=== PATIENT | female | born 1950 | race Caucasian/White ===

== ENCOUNTER 2018-08-07 15:23 | Outpatient (REF) | payer MEDICARE, SELFPAY ==
[2018-08-07 21:23] LABS: Anion Gap 9.6 mmol/L (3-11); BUN 17 mg/dL (7-18); CO2 30.4 mmol/L (21.0-32.0); CREATININE 0.97 mg/dL (0.55-1.02); Calcium 8.9 mg/dL (8.5-10.1); Chloride 100 mmol/L (98-107); Estimated GFR 57.28 (mL/min/1.73m2); Glucose 217 mg/dL (70-100); Potassium 3.4 mmol/L (3.5-5.1); Sodium 140 mmol/L (136-145)
== END 2018-08-07 15:43 ==
LOC: NCHCN 15:23
PROVIDERS: PCP Family Medicine; Visit Provider Family Medicine
DX: I10 Essential (primary) hypertension (principal)
CPT/HCPCS: 80048

== ENCOUNTER 2019-01-14 08:19 | Outpatient (CLI) | payer MEDICARE, SELFPAY ==
[2019-01-14 09:21] LABS: Hemoglobin A1C 6.7 % (4.5-6.2)
[2019-01-14 09:54] LABS: ALT 30 U/L (12-78); AST 19 U/L (15-37); Albumin 3.3 g/dL (3.4-5.0); Alkaline Phosphatase 61 U/L (46-116); Anion Gap 7.4 mmol/L (3-11); BUN 19 mg/dL (7-18); Bilirubin, Total 0.3 mg/dL (0.2-1.0); CO2 32.6 mmol/L (21.0-32.0); CREATININE 1.01 mg/dL (0.55-1.02); Calcium 9.1 mg/dL (8.5-10.1); Chloride 100 mmol/L (98-107); Cholesterol 177 mg/dL (50-200); Estimated GFR 54.51 (mL/min/1.73m2); Glucose 105 mg/dL (70-100); HDL Cholesterol 58 mg/dL (40-60); LDL CHOLESTEROL 98 mg/dL (<100); Potassium 3.6 mmol/L (3.5-5.1); Sodium 140 mmol/L (136-145); Total Protein 7.2 g/dL (6.4-8.2); Triglyceride 140 mg/dL (30-150)
== END 2019-01-14 08:39 ==
PROVIDERS: PCP Family Medicine; Visit Provider Family Medicine
DX: E11.9 Type 2 diabetes mellitus without complications (principal); I10 Essential (primary) hypertension; E66.9 Obesity, unspecified
CPT/HCPCS: 36415; 80053; 80061; 83721; 83036

== ENCOUNTER 2019-02-09 08:16 | Outpatient (CLI) | payer MEDICARE, SELFPAY ==
--- NOTE | 2019-02-09 12:58 | DI.MAMMO_ITS ---
SYMPTOMS/DIAGNOSIS: SCREENING, Z12.31 MAMMOGRAM: Mammograms were interpreted according to the usual protocol including computer analysis with CAD system, tomosynthesis and C view imaging. The breasts are of moderate density with fairly symmetrical distribution of fibroglandular tissue. No dominant mass or clumped microcalcification is identified in either breast. Current examination is compared with previous examinations including March 2017 and there has been no gross interval change in appearance in comparison with the previous studies. CONCLUSION: No specific evidence of malignancy at this time. Routine screening examinations are suggested at yearly intervals in this age group according to the ACS/ACR guidelines. Category 1, breast density category B. MQSA ASSESSMENT OF FINDINGS: Negative. Category 1. Patient will receive a letter notifying them of these results. BI-RADS category B. There are scattered areas of fibroglandular density.
== END 2019-02-09 08:36 ==
PROVIDERS: PCP Family Medicine; Visit Provider Family Medicine
DX: Z12.31 Encounter for screening mammogram for malignant neoplasm of breast (principal)
CPT/HCPCS: 77063; 77067

== ENCOUNTER 2019-03-23 09:41 | Outpatient (CLI) | payer MEDICARE, SELFPAY ==
--- NOTE | 2019-03-23 08:32 | DI.RAD_ITS ---
SYMPTOMS/DIAGNOSIS: LUMP ALONG THE ULNAR ASPECT OF LITTLE FINGER LEFT LITTLE FINGER: Three views. There is focal soft tissue swelling at the ulnar aspect of the left little finger. No associated soft tissue calcifications are seen. The underlying bones are unremarkable. No suspicious lytic or sclerotic lesions are seen. No acute fracture or dislocation is present. IMPRESSION: Focal soft tissue swelling at the ulnar aspect of the left little finger. No associated underlying osseous abnormality is identified. MRI should be considered for further evaluation.
== END 2019-03-23 10:01 ==
PROVIDERS: PCP Family Medicine; Referring Provider Family Medicine; Visit Provider Student in an Organized Health Care Education/Training Program
DX: R22.32 Localized swelling, mass and lump, left upper limb (principal); M79.89 Other specified soft tissue disorders; M79.642 Pain in left hand; M65.312 Trigger thumb, left thumb
CPT/HCPCS: 99202; 99203; 73140

== ENCOUNTER 2019-04-14 11:15 | Day surgery (SDC) | payer MEDICARE, SELFPAY ==
--- NOTE | 2019-04-14 10:07 | W.PM.DSUDISC ---
Discharge Plan Disposition Patient Disposition: HOME Condition: Good Discharge Details Reason For Visit: Cyst on left index finger; left trigger thumb Attending Provider: Juan Jose Pino Primary Care Provider: Samra Soares Home Meds and New Rx's Prescriptions: New acetaminophen 500 mg tablet 500 mg PO Q6H PRN (Reason: pain) Qty: 60 RF: 0 ibuprofen 600 mg tablet 600 mg PO TID PRN (Reason: pain) Qty: 60 RF: 0 Continued lisinopril 5 mg tablet 5 mg PO DAILY RF: 0 Discharge Instructions Additional Instructions: Activity: You may use your fingers for light activity. You should limit any excessive motion or forceful gripping until the sutures have been removed. Dressings: You should keep the initial surgical dressing in place for at least 3 days. You may remove your dressings and get the wound wet after 3 days. You should keep the dressings and the wound clean at all times. You may keep the initial dressing in place until your follow-up but keep the wound covered with light gauze until the sutures are removed. Medications: - You should take Tylenol and Ibuprofen around the clock as prescribed or per condenser setter's recommendations. - You have Hydrocodone prescribed for breakthrough pain control. Take only as needed and limit use as much as possible. This may cause constipation. Follow-up: 7-10 days for wound check and suture removal. Stand Alone Forms: Carmencita Smith (ERINU) Referrals: Juan Jose Pino MD [ [facility] STAFF PHYSICIAN] - Activity:: Elevate Remove Dressings/Wound Care:: 72 hours Discharge Orders Discharge Orders: Discharge Order (Routine); Ordered 04/14/19 Ordered By: Keli Lomax DS: Diagnosis Discharge Diagnosis (1) Mass of finger of left hand: Status: Acute (2) Trigger thumb, left thumb: Status: Acute
[2019-04-14 11:29] VITALS: BP 140/85; PULSE 95; RESP 16; TEMP 36.5; O2SAT 94
[2019-04-14] MEDS: Sodium Bicarbonate 50 MEQ/50 ML VIAL (12:46)
[2019-04-14] MEDS: Lidocaine 1% Multi-Dose 50 ML VIAL (12:46)
[2019-04-14] MEDS: methylPREDNISolone ACETATE 80 MG/ML VIAL (12:48)
--- NOTE | 2019-04-14 12:57 | SOFT_PTH ---
PATIENT: Tatyana King LOC: [facility] U#:[id number] AGE/SX: 68/F ROOM: RE04/14/[address]: Juan Jose Pino MD : 1950 BED: DIS: 04/14/2019 SPEC #: [id number] RECD: 04/14/19 17:36 STATUS: PAUL REDana #: [id number] ANITA: 04/14/19 12:[address]: Juan Jose Pino DEPT: Surgical Specimen RECD BY: Hayley Miller ENTERED: 04/14/19 17:37 SP TYPE: SOFT OTHR DR: Samra Soares Tissues: 1 - SOFT TISSUE MISC (INC. LIPOMA) Procedures: GROSS AND MICRO LEVEL 3 Comments: [id number]
[2019-04-14] MEDS: Bupivacaine 0.5% Pres-Free 30 ML VIAL (13:02)
--- NOTE | 2019-04-14 22:59 | W.PM.OP ---
Date of service: 04/14/19 Time of Service: 15:59 Operative Note DATE OF PROCEDURE: 04/14/19 PRE-OP DIAGNOSIS: Left little finger mass, trigger Finger -left thumb POST-OP DIAGNOSIS: other (Left little finger lipoma, left thumb trigger finger) PROCEDURE: Excisional biopsy of left little finger, left thumb trigger finger injection SURGEON: Juan Jose Pino ANESTHESIA: local ESTIMATED BLOOD LOSS: 0 PATHOLOGY: none sent COMPLICATIONS: None Patient was transported to: same day Patient's condition: stable Indications: I have seen Tatyana in clinic for symptoms of a trigger finger of the left thumb as well as a mass of the left little finger. The catching, clicking, locking, and pain limited function. The diagnosis of trigger finger was evident. The mass of the little finger has gotten larger over time. The only pain it caused was due to the sheer size and limiting motion of the finger but without any other skin changes or concerning findings. Given its persistence in size and its hindrance with motion, I recommended excisional biopsy. I reviewed the risks of the procedure to include, but not limited to, bleeding, infection, pain, stiffness, recurrence, damage to nerves or vessels, and need for repeat procedures. Despite these risks, the patient elected to proceed. As a way to treat the trigger thumb, I offered a trigger finger injection. Findings: The left little finger mass was addressed from a mid axial approach and was clearly a lipoma. It was it will be with taken out and whole without any invasive findings. It was sent to pathology. Procedure Description: Tatyana was greeted in the preoperative holding area where the correct side was identified and marked. The consent was reviewed with the patient and signed. All questions were answered. Tatyana was taken back to the operating room. The patient was placed into the supine position on the operating room table with the left arm on an arm board. All bony prominences were well padded. No prophylactic antibiotics were administered since this was a clean, elective hand surgical case. The left arm was then prepped with Chloraprep and draped in a standard fashion with stockinette and extremity drape. A timeout to confirm correct identity, side and site, procedure, allergies, anesthesia, and medical concerns was performed. The surgical site was marked as a mid axial incision directly over the ulnar border of the little finger. This area was then anesthetized with 1% Lidocaine. The patient tolerated this well and once the anesthetic had setup, the procedure began. The incision was first made to the skin only. The deep tissues were dissected bluntly. Immediately the mass was identified. At this moment appeared to be a lipoma. There was a few layers surrounding it which were entered. Once inside this capsular layer of the lipoma lipoma was easily mobile and it would be removed. Working from within this capsular layer I then incised it for better access to the lipoma. I was able to bring the lipoma out of the skin and work from outside and to free it from any connections. There is no obvious involvement of the neurovascular bundle. The mass was able to be removed and whole. Once resected there was a large space. The tendons were intact. No notable injury to deep structures. The mass was sent to pathology. The wound was then irrigated and the skin was closed with a 4-0 Nylon. This was dressed with gauze and a Conform dressing. The left thumb was identified as the site of the trigger thumb. The area over the A1 batsheva was identified. This area was then prepped with ChloraPrep. An injection into the A1 batsheva and the flexor tendon sheath of the left thumb was then performed using 1 cc of 0.5% bupivacaine and 40 mg of Depo-Medrol. After the injection, Band-Aid was applied. The patient tolerated the procedure well and was returned to the Same Day Surgery area in a stable condition suffering no known complication.
== END 2019-04-14 13:30 | disposition home or self-care (01) ==
LOC: SUR 11:16
PROVIDERS: PCP Family Medicine; Visit Provider Student in an Organized Health Care Education/Training Program
PROC: (CPT 26160; principal; 2019-04-14 13:45)
PROC: (CPT 26055; 2019-04-14 13:45)
DX: M65.312 Trigger thumb, left thumb (principal); D17.39 Benign lipomatous neoplasm of skin and subcutaneous tissue of other sites
CPT/HCPCS: 26115; 26055; 88304; J1040

== ENCOUNTER → 2019-04-24 10:00 | Outpatient (BNVA) | payer MEDICARE, SELFPAY | PROVIDERS: PCP Family Medicine; Referring Provider Family Medicine; Visit Provider Student in an Organized Health Care Education/Training Program | DX: Z47.89 Encounter for other orthopedic aftercare (principal); M65.312 Trigger thumb, left thumb; R22.32 Localized swelling, mass and lump, left upper limb ==

== ENCOUNTER 2019-12-04 07:38 | Outpatient (CLI) | payer MEDICARE, SELFPAY ==
[2019-12-04] MEDS: Normal Saline Flush 10 ML SYR IVP (10:28)
[2019-12-04] MEDS: Gadoterate meglumine 20 ML VIAL 17 ML IVP (10:31)
--- NOTE | 2019-12-04 10:50 | DI.MRI_ITS ---
EXAM: MR CHEST WO/W CLINICAL HISTORY: H/O TRAUMA, MASS RT POSTERIOR LATERAL CHEST, SURGICAL PLANNING, F/U ABNL US, R93.8 9 TECHNIQUE: Multiplanar multisequence MRI of the cervical spine was performed. CONTRAST MATERIAL: IV Contrast: 17 ML of Dotarem contrast administered. COMPARISON: No exams were available for comparison FINDINGS: BONES: Bone marrow signal intensity is within normal limits. MUSCLES: Muscle signal is within normal limits. No intramuscular mass is identified. SOFT TISSUES: Marker on the patient's skin corresponds to a large area of subcutaneous fat along the posterior lateral right chest wall. This may represent a large lipoma. No solid component is identi fied. No enhancing lesions are seen. ENHANCEMENT: No suspicious enhancement identified. IMPRESSION: Large fat signal intensity mass in the posterolateral right chest wall corresponding to the palpable abnormality. The finding is most consistent with a lipoma. DATA REPOSITORY:
== END 2019-12-04 07:58 ==
PROVIDERS: PCP Family Medicine; Visit Provider Physician Assistant
DX: R22.2 Localized swelling, mass and lump, trunk (principal); D17.39 Benign lipomatous neoplasm of skin and subcutaneous tissue of other sites; Z01.818 Encounter for other preprocedural examination; Z13.89 Encounter for screening for other disorder
CPT/HCPCS: 71552; 82565

== ENCOUNTER 2020-01-25 08:28 | Outpatient (REF) | payer MEDICARE, SELFPAY ==
[2020-01-25 21:17] LABS: HCT 41.5 % (36.0-46.0); HGB 13.4 g/dL (12.0-15.5); Mean Corp. HGB Concentration 32.3 g/dL (32.0-36.0); Mean Corpuscular Hemoglobin 29.5 pg (27.0-33.0); Mean Corpuscular Volume 91.2 fL (80-95); Mean Platelet Volume 9.9 fL (8.0-11.0); Platelet Count 394 x1000/uL (130-400); RBC 4.55 m/cumm (4.00-5.20); RBC Distribution Width 14.9 % (11.7-14.6); White Blood Cell Count 8.91 k/cumm (4.4-10.8)
[2020-01-25 21:25] LABS: ALT 37 U/L (14-59); AST 24 U/L (15-37); Albumin 3.4 g/dL (3.4-5.0); Alkaline Phosphatase 65 U/L (46-116); Anion Gap 4.4 mmol/L (3-11); BUN 13 mg/dL (7-18); Bilirubin, Total 0.3 mg/dL (0.2-1.0); CO2 34.6 mmol/L (21.0-32.0); CREATININE 0.92 mg/dL (0.55-1.02); Calcium 9.1 mg/dL (8.5-10.1); Calculated LDL 90 mg/dL (<100); Chloride 103 mmol/L (98-107); Cholesterol 178 mg/dL (<200); Glucose 101 mg/dL (74-106); HDL Cholesterol 59 mg/dL (40-60); Potassium 4.4 mmol/L (3.5-5.1); Sodium 142 mmol/L (136-145); Total Protein 7.4 g/dL (6.4-8.2); Triglyceride 145 mg/dL (<150)
== END 2020-01-25 08:48 ==
LOC: NCHCN 08:28
PROVIDERS: PCP Family Medicine; Visit Provider Family Medicine
DX: I10 Essential (primary) hypertension (principal); Z13.6 Encounter for screening for cardiovascular disorders
CPT/HCPCS: 80053; 80061; 85027

== ENCOUNTER 2020-06-24 07:59 | Outpatient (CLI) | payer MEDICARE, SELFPAY ==
[2020-06-25 14:57] LABS: COVID-19 RT-PCR Result NEGATIVE (Negative)
== END 2020-06-24 08:19 ==
PROVIDERS: PCP Family Medicine
DX: Z11.59 Encounter for screening for other viral diseases (principal); Z01.818 Encounter for other preprocedural examination
CPT/HCPCS: U0003

== ENCOUNTER 2022-04-16 07:50 | Emergency (ER) | payer MEDICARE, SELFPAY ==
[2022-04-16 07:59] VITALS: BP 161/85; PULSE 100; RESP 16; TEMP 36; O2SAT 95
--- NOTE | 2022-04-16 08:14 | W.ED.GENAD ---
Discharge Plan Disposition Patient Disposition: HOME Condition: Good Discharge Details Clinical Impression: Contusion of face, Facial hematoma, Abrasion of face Primary Care Provider: Samra Soares ED Provider: Ludivina Zacarias Home Meds and New Rx's Prescriptions: Continued lisinopril 5 mg tablet 5 mg PO DAILY Rx Instructions: PT. IS UNSURE OF DOSAGE acetaminophen 500 mg tablet 500 mg PO Q6H PRN (Reason: pain) Qty: 60 0RF ibuprofen 600 mg tablet 600 mg PO TID PRN (Reason: pain) Qty: 60 0RF Discharge Instructions Instructions: Head Injury (ED), Contusion in Adults (ED) Additional Instructions: Your imaging is reassuring here today. No evidence of significant bleeding or fracture. Likely your bruising and swelling will continue to spread. Please encourage hydration. Tylenol and ibuprofen as needed for discomfort. Please continue to ice the area, this should help with some of your swelling. Please follow-up with your primary care in the next 1 to 2 weeks for reevaluation. If he develops signs or symptoms of infection such as redness, warmth, drainage, increased pain, fever/chills or evidence of worsening head injury like confusion, weakness, sensation change, vomiting or any other new/worsening symptoms please seek care urgently once again. Referrals: Samra Soares [Primary Care Provider] - Discharge Data Discharge Date/Time-TO BE ENTERED AT DEPARTURE: 04/16/22 10:07 Medical Decision Making Patient is a pleasant 71-year-old female, accompanied by significant other, with chief complaint of facial injury. She reports a prior to arrival she caught her flip-flop on a small step and propelled her self forward hitting her face on a shelf with the chest wall. Has a area of swelling over the right orbit as well as some abrasions at the bridge of her nose and tenderness there. She denies any loss of consciousness, headache, visual changes, nausea/vomiting. She denies any eye pain. She feels that her teeth are aligning well, denies any malocclusion or pain with biting. Denies any pain in her neck. No shortness of breath or chest pain. Patient reports she is up-to-date on tetanus. On exam, patient appears nontoxic. She has a 4 cm area of swelling superior to the right eyebrow. She does have upper orbital tenderness. Extraocular movements are intact. She also has a small very superficial abrasion at the bridge of her nose and some ecchymosis here. No intranasal trauma is noted. Good movement of the TMJ, no facial pain elsewhere. C-spine is nontender, sensation is intact. Patient appears to have hematoma and abrasions associate with the fall. Patient patient's age, I am concerned for potential intracranial hemorrhage although her intact neurologic exam is reassuring. She is currently icing the area. We will give Tylenol to help with discomfort. We will forward with CT scans to evaluate for potential intracranial hemorrhage as well as possible fractures associated with the fall primarily with the right upper orbit as well as nasal bone. Discussed this plan with patient and family. CT scan reviewed by radiologist, reported to be negative head and face. Discussed these findings with the patient and her significant other. Advised contusion. We discussed fall prevention moving forward. Advised on pain management. Advised on expected course and strict return precautions. Tetanus UTD. Advised f/u with PCP. Advised she continue with ice to help with swelling/pain. All of her questions and concerns were addressed, she was in agreement with this plan. HPI General Date/Time Provider Initiated Documentation: 04/16/22 08:13. Limitations to Documentation: no limitations. Information obtained by: patient, family () and RN notes reviewed. History of Present Illness 71 year old F presents to the emergency department with the chief complaint of facial pain, trauma, described as mild, Quality is described as aching, and is localized to the face. Patient reports no radiation. Patient started experiencing this minute(s) and it has been constant. No relieving factors improve symptom(s), No exacerbating factors reported . Patient notes headaches; denies chest pain, diaphoresis, fever/chills, malaise, nausea/vomiting, seizure, shortness of breath, syncope and weakness. Patient did receive the following treatments prior to arrival, none Related Data Home Medications Medication Instructions Recorded Confirmed lisinopril 5 mg tablet 5 mg PO DAILY 03/23/19 04/16/22 acetaminophen 500 mg tablet 500 mg PO Q6H PRN pain #60 tabs 04/14/19 04/16/22 ibuprofen 600 mg tablet 600 mg PO TID PRN pain #60 tabs 04/14/19 04/16/22 Previous Rx's Medication Instructions Recorded acetaminophen 500 mg tablet 500 mg PO Q6H PRN pain #60 tabs 04/14/19 ibuprofen 600 mg tablet 600 mg PO TID PRN pain #60 tabs 04/14/19 Allergies Allergy/AdvReac Type Severity Reaction Status Date / Time Sulfa (Sulfonamide Allergy Intermediate Verified 04/16/22 08:05 Antibiotics) General Stated Complaint: Trauma PAUL: 3 Review of Systems Constitutional Constitutional: Reports as per HPI, Denies fever(s), Denies frequent falls, Reports headache(s) and Denies weakness Eyes Eyes: Reports as per HPI and Denies change in vision ENT Ears, Nose, Mouth, and Throat: Reports headache(s) and Denies neck pain Cardiovascular Cardiovascular: Reports as per HPI, Denies chest pain, Denies lightheadedness and Denies dyspnea Respiratory Respiratory: Reports as per HPI, Denies cough and Denies dyspnea Gastrointestinal Gastrointestinal: Reports as per HPI, Denies nausea and Denies vomiting Musculoskeletal Musculoskeletal: Reports as per HPI, Denies back pain, Denies neck pain and Denies numbness Integumentary/Breasts Skin/Breast: Reports as per HPI Neurologic Neurologic: Reports as per HPI, Denies abnormal movements, Denies abnormal speech, Denies confusion, Denies frequent falls, Reports headache(s), Denies localized weakness, Denies numbness, Denies sensory deficit and Denies weakness Psychiatric Psychiatric: Denies confusion PFSH All Active Problems (Updated 04/24/19 @ 14:45 by Keli Lomax) Contusion of face (Acute) Facial hematoma (Acute) Abrasion of face (Acute) Trigger thumb, left thumb (Acute) Injection: 04/14/19 Mass of finger of left hand (Acute) Excision of lipoma from left little finger DOS: 04/14/2019 Medical History (Updated 04/16/22 @ 10:01 by MARIE Pemberton) Bone spur HX OF BONE SPUR SURGERY Hypertension Social History Smoking/Tobacco Use Status: Former Tobacco Use Quit Date: 04/09/08 Smoking risk assessment performed?: Yes Alcohol Intake: current Alcohol Intake frequency: holidays/special occasions only Alcohol type: wine and hard liquor Drug use: Never Substance use type: does not use Do you feel safe at home: Yes Do you feel safe in your relationship?: Yes Additional Social history: partner at bedside. Exam Const General: cooperative, healthy appearing, uncomfortable, no acute distress, well developed and well groomed Nutritional Appearance: average body habitus and well nourished Orientation: alert, awake and oriented x3 [facility] Head: no palpable skull fracture, normocephalic, no acral cyanosis, no Pimentel's sign, no occipital foramen tenderness and no palpable skull fracture Head images: 1. Area of maximal tenderness, swelling and ecchymosis. Smaller area at the bridge of her nose. No palpable defect. Ears: hearing grossly normal bilaterally, external ears normal and TM's normal bilaterally General nose exam: external nose normal, nares normal and nasal mucous membranes and turbinates normal Mouth: oral mucosae normal and moist mucous membranes Throat: posterior oropharynx normal Eyes General: appearance normal, both eyes and all related structures Alignment and Position: alignment normal Periorbital: periorbital findings normal Eyelids: eyelids normal Sclera: sclerae normal Cornea: corneas normal Pupils: PERRL EOM: EOM intact bilaterally Neck Neck: normal visual inspection, full ROM and no lymphadenopathy Resp Effort & Inspection: normal respiratory effort, able to speak in complete sentences and no respiratory distress Auscultation: clear to auscultation bilaterally, no rales, no rhonchi and no wheezes Cardio Rate: regular rate Rhythm: regular rhythm Heart Sounds: S1 normal and S2 normal GI Percussion: normal to percussion Auscultation: normal bowel sounds Back/Spine/Pelvis Cervical Spine: normal cervical lordosis and cervical ROM normal Skin General skin exam: ecchymosis Neuro General: patient alert, patient awake and patient oriented x3 Cranial Nerves: CN's II-XI intact bilaterally Cognition: normal cognition Speech: speech normal Gait: normal gait Motor: muscle tone normal throughout, strength 5/5 throughout, no pronator drift, no movement abnormalities noted and no fasciculations Sensory Exam: no sensory deficits noted Coordination: [id number] test normal and [id number] test normal Extrem General: normal to inspection, capillary refill normal, no pedal edema and no calf tenderness Psych Appearance: grossly normal and well kempt Mental Status: mental status grossly normal Speech and Movement: speech and movement normal Course Vital Signs Vital signs: Vital Signs Temperature 36.0 C L 04/16/22 07:59 Pulse 100 H 04/16/22 07:59 Respiratory Rate 16 04/16/22 07:59 Blood Pressure 161/85 H 04/16/22 07:59 Pulse Oximetry 95 04/16/22 07:59 Temperature 36.0 C L 04/16/22 07:59 Temperature Source Skin 04/16/22 07:59 Pulse 100 H 04/16/22 07:59 Respiratory Rate 16 04/16/22 07:59 Blood Pressure 161/85 H 04/16/22 07:59 Blood Pressure Position Sitting 04/16/22 07:59 Pulse Oximetry 95 04/16/22 07:59 Oxygen Delivery Method Room Air 04/16/22 07:59 Oxygen Flow Rate 0 04/16/22 07:59 Pain Level 0 04/16/22 07:59
[2022-04-16] MEDS: Acetaminophen 325 MG TAB 650 MG PO (08:31)
--- NOTE | 2022-04-16 08:46 | DI.CT_ITS ---
Exam(s) CT HEAD FACIAL WO EXAM: CT HEAD FACIAL WO CLINICAL HISTORY: fall, struck face, no right orbit pain. TECHNIQUE: Imaging Protocol: Axial computed tomography images with coronal and sagittal reformatted images were created and reviewed COMPARISON: No exams were available for comparison FINDINGS: BRAIN: There is a right supraorbital scalp hematoma. No skull fracture nor fluid in the visualized paranasa l sinuses and mastoid air cells. There is no evidence of intracranial hemorrhage, mass effect, or shift of midline structures. There are no extra-axial fluid collections. The ventricles are not enlarged or shifted and there is no blo od within the ventricular system nor within the basal cisterns. Calcifications noted within the left vertebral artery at the skull base. MAXILLOFACIAL CT SCAN: There is no evidence of facial fractures nor fluid in the visualized paranasal sinuses. Small retent ion cyst noted in the floor of the right maxillary sinus. No fluid. There is no evidence of orbital blowout fracture. No evidence of nasal bone fracture. Zygomatic arches are intact. Degenerative disc disease at C4-5 level incidentally noted. IMPRESSION: Right foreign hematoma. No acute intracranial findings on this noninfused CT scan of the brain.No sk ull fractures. No evidence of facial bone fractures nor orbital fractures. Report called by myself to the ER. RADIATION DOSE DELIVERED: 1,529.2mGy.cm Total DLP DATA REPOSITORY: All CT scans at this facility are submitted to the National Radiology Data Registry (NRDR) Dose Index Registry (DIR) with the [employer] (ACR). RADIATION OPTIMIZATION: All CT scans at this facility use at least one of these dose optimization te chniques: automated exposure control; mA and/or kV adjustment per patient size (includes targeted exa ms where dose is matched to clinical indication); or iterative reconstruction.
[2022-04-16 09:01] VITALS: BP 138/65; PULSE 79; RESP 16; O2SAT 97
[2022-04-16 10:05] VITALS: BP 138/65; PULSE 79; RESP 16; O2SAT 97
== END 2022-04-16 10:07 | disposition home or self-care (01) ==
PROVIDERS: Emergency Provider Physician Assistant; PCP Family Medicine
DX: S00.83XA Contusion of other part of head, initial encounter (principal); S00.31XA Abrasion of nose, initial encounter; I10 Essential (primary) hypertension; Z87.891 Personal history of nicotine dependence; W01.198A Fall on same level from slipping, tripping and stumbling with subsequent striking against other object, initial encounter
CPT/HCPCS: 99284; 70450; 70486; 99282

== ENCOUNTER 2022-10-23 15:59 | Outpatient (REF) | payer MEDICARE, SELFPAY ==
[2022-10-23 14:52] LABS: ALT 25 U/L (14-59); AST 19 U/L (15-37); Albumin 3.5 g/dL (3.4-5.0); Alkaline Phosphatase 65 U/L (46-116); Anion Gap 2.5 mmol/L (3-11); BUN 19 mg/dL (7-18); Bilirubin, Total 0.3 mg/dL (0.2-1.0); CO2 36.5 mmol/L (21.0-32.0); CREATININE 0.8 mg/dL (0.55-1.02); Calcium 9.7 mg/dL (8.5-10.1); Calculated LDL 91 mg/dL (<100); Chloride 103 mmol/L (98-107); Cholesterol 172 mg/dL (<200); Estimated GFR 78.72 (mL/min/1.73m2); Glucose 110 mg/dL (74-106); HDL Cholesterol 62 mg/dL (40-60); Potassium 4.5 mmol/L (3.5-5.1); Sodium 142 mmol/L (136-145); Total Protein 7.3 g/dL (6.4-8.2); Triglyceride 97 mg/dL (<150)
== END 2022-10-23 16:00 | disposition home or self-care (01) ==
LOC: NCHCN 15:59
PROVIDERS: PCP Family Medicine; Visit Provider Family Medicine
DX: E55.9 Vitamin D deficiency, unspecified (principal); I10 Essential (primary) hypertension; Z13.220 Encounter for screening for lipoid disorders; Z00.00 Encounter for general adult medical examination without abnormal findings
CPT/HCPCS: 80053; 80061; 82306

== ENCOUNTER 2022-11-15 01:30 | Outpatient (CLI) | payer MEDICARE, SELFPAY ==
--- NOTE | 2022-11-15 08:35 | DI.MAMMO_ITS ---
Exam(s) MAMMO SCREENING EXAM: MAMMO SCREENING CLINICAL HISTORY: SCREENING, Z12.31 TECHNIQUE: Mammograms were interpreted according to the usual protocol including computer analysis w [employer] CAD system, tomosynthesis and C-view imaging. COMPARISON: 2013 through 2018 FINDINGS: The breasts are composed of scattered fibroglandular densities, Breast Density category B. No suspicious masses or suspicious microcalcifications are seen. No skin thickening or abnormal axillary lymph nodes are seen. There has been no significant change from prior exams. IMPRESSION: BI-RADS Category 1, Negative mammogram Yearly screening mammography is recommended. Breast Density - Category B, scattered fibroglandular densities. A negative radiographic report should not delay biopsy if a dominant or clinically suspicious mass is present. Up to ten percent of cancers are not identified on mammography. A negative report may reinforce clinical impression. Adenosis and dense breasts may obscure an underlying neoplasm. False positive reports average 6 to 10%. Patient will receive a letter notifying them of these results.
== END 2022-11-15 01:50 ==
PROVIDERS: PCP Family Medicine; Visit Provider Family Medicine
DX: Z12.31 Encounter for screening mammogram for malignant neoplasm of breast (principal); R92.8 Other abnormal and inconclusive findings on diagnostic imaging of breast
CPT/HCPCS: 77063; 77067

== ENCOUNTER 2023-05-10 17:49 | Outpatient (REF) | payer MEDICARE, SELFPAY ==
[2023-05-10 16:22] LABS: Hemoglobin A1C 6.7 % (<5.7)
== END 2023-05-10 17:50 | disposition home or self-care (01) ==
LOC: NCHCN 17:49
PROVIDERS: PCP Family Medicine; Visit Provider Family Medicine
DX: E11.9 Type 2 diabetes mellitus without complications (principal)
CPT/HCPCS: 83036

== ENCOUNTER 2024-02-27 17:19 | Emergency (ER) | payer MEDICARE, SELFPAY ==
[2024-02-27 17:23] VITALS: BP 156/80; PULSE 80; RESP 16; TEMP 36.8; O2SAT 98
--- NOTE | 2024-02-27 17:30 | DI.RAD_ITS ---
Exam(s) XR HUMERUS LT EXAM: XR HUMERUS LT CLINICAL HISTORY: fall, mid humerus pain. TECHNIQUE: 2D digital imaging was performed. Two views. COMPARISON: No exams were available for comparison FINDINGS: BONES: No acute fracture is present. No bony destructive lesion is seen. Visualized portion of elbow and shoulder joints are unremarkable. SOFT TISSUE: Normal. IMPRESSION: No acute abnormality. DATA REPOSITORY: RADIATION DOSE DELIVERED:
--- NOTE | 2024-02-27 17:35 | DI.CT_ITS ---
Exam(s) CT HEAD FACIAL WO EXAM: CT HEAD FACIAL WO CLINICAL HISTORY: fall,head injury, brow laceration L. TECHNIQUE: Imaging Protocol: Axial computed tomography images with coronal and sagittal reformatted images were created and reviewed COMPARISON: CT CT HEAD FACIAL WO from 04/16/2022 CR XR HUMERUS LT from 02/27/2024 FINDINGS: CT Head: Ventricles and Extra axial spaces: Normal in size and morphology for the patient's age. Hemorrhage: None. Cerebral parenchyma: Mild atrophy. No evidence of hemorrhage or infarct. No significant white matte r changes. Midline shift: None. Brainstem/Cerebellum: Normal. Calvarium: Normal. Visualized Paranasal sinuses/Mastoids: Fluid in hemorrhage in left maxillary sinus. Soft Tissues: Left periorbital swelling and periorbital emphysema. CT Face: Facial Bones: There is a fracture of the inferior wall of the left orbit with depression and some he rniation of fat. There is no herniation of the inferior rectus muscle. The amount of depression is approximately 5 millimeters. No additional fractures are identified. Sinuses and Mastoids: Fluid in hemorrhage in the left maxillary sinus. Globes, extraocular muscles, optic nerves and retrobulbar fat: The globes and extraocular muscles ar e intact. There is air within the left orbit. Upper aerodigestive tract: Normal. Mandible and bilateral temporomandibular joints: Normal. Soft tissues: Marked left periorbital emphysema. IMPRESSION: 1. No acute intracranial process. 2. Fracture of the inferior wall of the left orbit with depression of approximately 5 millimeters. S ome herniation of intraorbital fat but no herniation of the inferior rectus muscle. 3. Findings called to Dr. Gonzalez of the emergency department. RADIATION DOSE DELIVERED: Total DLP DATA REPOSITORY: All CT scans at this facility are submitted to the National Radiology Data Registry (NRDR) Dose Index Registry (DIR) with the [employer] (ACR). RADIATION OPTIMIZATION: All CT scans at this facility use at least one of these dose optimization te chniques: automated exposure control; mA and/or kV adjustment per patient size (includes targeted exa ms where dose is matched to clinical indication); or iterative reconstruction.
--- NOTE | 2024-02-27 17:41 | ED.GENADUL_ITS ---
Discharge Plan Disposition Patient Disposition: Home Condition: Improving Discharge Details Clinical Impression: Laceration of brow without complication, Fracture of inferior orbital wall Primary Care Provider: Samra Soares ED Provider: Sergio Gonzalez Home Meds and New Rx's Prescriptions: New amoxicillin-pot clavulanate 875-125 mg tablet 1 tab PO BID 7 Days Qty: 14 0RF No Action acetaminophen 500 mg tablet 500 mg PO Q6H PRN (Reason: pain) Qty: 60 0RF ibuprofen 600 mg tablet 600 mg PO TID PRN (Reason: pain) Qty: 60 0RF Discharge Instructions Instructions: Facial Fracture (DC) Additional Instructions: Please follow-up with oral maxillofacial surgery/underwear cutter at [facility] referral has been placed for you, continue to take antibiotics as prescribed, please return to the emergency department for any worsening symptoms HPI General Date/Time Provider Initiated Documentation: 02/27/24 17:31 . HPI Narrative: 73-year-old female presents after mechanical fall from standing tripped fell forward hitting her left brow, skin flap to left brow no loss of conscious, no blood thinner use, also pain to mid left arm, no other injuries. Related Data Home Medications Medication Instructions Recorded Confirmed acetaminophen 500 mg tablet 500 mg PO Q6H PRN pain #60 tabs 04/14/19 02/27/24 ibuprofen 600 mg tablet 600 mg PO TID PRN pain #60 tabs 04/14/19 02/27/24 amoxicillin 875 mg-potassium 1 tab PO BID 7 days #14 tabs 02/27/24 clavulanate 125 mg tablet Previous Rx's Medication Instructions Recorded acetaminophen 500 mg tablet 500 mg PO Q6H PRN pain #60 tabs 04/14/19 ibuprofen 600 mg tablet 600 mg PO TID PRN pain #60 tabs 04/14/19 amoxicillin 875 mg-potassium 1 tab PO BID 7 days #14 tabs 02/27/24 clavulanate 125 mg tablet Allergies Allergy/AdvReac Type Severity Reaction Status Date / Time Sulfa (Sulfonamide Allergy Intermediate Anaphylaxis Verified 02/27/24 17:25 Antibiotics) General Stated Complaint: Fall/Non TraumaCriteria PAUL: 3 Review of Systems Narrative: Review of Systems Constitutional: negative Eyes: Brow laceration ENT: negative Cardiovascular: negative Respiratory: negative Gastrointestinal: negative : negative Musculoskeletal: Left arm pain Skin: negative Neurologic: negative Psych: negative Exam Narrative Exam Narrative: Physical Examination General: alert, awake, cooperative, resting comfortably, no acute distress HEENT: normocephalic, superficial skin flap approximately 2.5 cm left brow, hemostatic no foreign body, extraocular motion intact no proptosis normal pupils equal round reactive to light Neck: supple, trachea midline; full ROM Chest: normal to inspection Respiratory: normal respiratory effort, speaking in full sentences Back: No midline spinal tenderness step-off crepitus or deformity Skin: See HEENT Neuro: AAOx3, normal speech, moving all extremities Extremities: Holding left upper extremity adducted to side, flexion at elbow, median radial and ulnar sensory nerve distribution intact radial pulse intact soft compartments, range of motion at shoulder limited by pain tenderness to midshaft humerus, no elbow discomfort Psych: Appropriate mood and affect Course Vital Signs Vital signs: Vital Signs Temperature 36.8 C 02/27/24 17:23 Pulse 80 02/27/24 17:23 Respiratory Rate 16 02/27/24 17:23 Blood Pressure 156/80 H 02/27/24 17:23 Pulse Oximetry 98 02/27/24 17:23 Temperature 36.8 C 02/27/24 17:23 Pulse 80 02/27/24 17:23 Respiratory Rate 16 02/27/24 17:23 Blood Pressure 156/80 H 02/27/24 17:23 Pulse Oximetry 98 02/27/24 17:23 Oxygen Delivery Method Room Air 02/27/24 17:23 Oxygen Flow Rate 0 02/27/24 17:23 Pain Level 10 02/27/24 17:23 Procedures Laceration Laceration 1: Site: face Side (If applicable): left Size (cm): 3 Description: flap Depth: simple, single layer Local Anesthetic: other anesthetic (LET) Pre-repair: wound explored, irrigated extensively and deep structures intact Skin layer closed with: vicryl Size (cm): 5-0 Number of sutures: 6 Technique: simple, interrupted Medical Decision Making 73-year-old female presents for mechanical fall from standing, fell forward hitting her left brow sustaining superficial 2.5 cm skin flap to left brow, pain to midshaft left humerus, hemodynamically stable alert oriented airway intact breathing circulation intact, neurovascular exam of limb intact, wound hemostatic no foreign body, no loss conscious neurologically intact without deficit, likely simple contusion and skin flap laceration, lower suspicion for intracranial hemorrhage skull fracture or facial fracture no evidence of globe disruption however given age and mechanism and exam will obtain CT head CT facial bone, fluorescein tetracaine stain, x-ray of left humerus concerning for proximal humeral fracture versus midshaft humerus fracture lower suspicion for supracondylar fracture lower suspicion for dislocation, analgesia L ET gel applied to facial lack, disposition pending reassessment and results 22: 19 resting comfortably no acute distress. Evidence of inferior wall left orbit fracture with depression and some intraorbital fat herniation, no entrapment of the extraocular muscles, CT head unremarkable, patient started on Augmentin empirically, will be given ENT/OMFS follow-up at [facility]. Home care instructions and return precautions given Quality:SDOH Health Related Social Needs: No Data to Display PFSH All Active Problems (Updated 04/24/19 @ 14:45 by Keli Ponce) Fracture of inferior orbital wall (Acute) Laceration of brow without complication (Acute) Trigger thumb, left thumb (Acute) Injection: 04/14/19 Mass of finger of left hand (Acute) Excision of lipoma from left little finger DOS: 04/14/2019 Medical History (Updated 02/27/24 @ 22:20 by Sergio Gonzalez MD) Bone spur HX OF BONE SPUR SURGERY Hypertension Social History Smoking/Tobacco Use Status: Former Tobacco Use Quit Date: 04/09/08 Smoking risk assessment performed?: Yes Alcohol Intake: current Alcohol Intake frequency: holidays/special occasions only Alcohol type: wine and hard liquor Drug use: Never Substance use type: does not use Do you feel safe at home: Yes Do you feel safe in your relationship?: Yes Additional Social history: partner at bedside.
[2024-02-27] MEDS: ACETAMINOPHEN 1,000 MG/100 ML BTL 400 MG IVPB (17:43)
[2024-02-27] MEDS: Lidocaine/Epinephri/Tetracaine Topical Gel 3 ML (17:44)
[2024-02-27] MEDS: fentaNYL 100 MCG/2 ML VIAL 50 MCG IVP (17:58)
--- NOTE | 2024-02-27 18:30 | DI.CT_ITS ---
Exam(s) CT UPPER EXTREMITY LT WO EXAM: CT UPPER EXTREMITY LT WO CLINICAL HISTORY: mid shaft humerus pain, negative xr TECHNIQUE: Imaging Protocol: Axial computed tomography images with coronal and sagittal reformatted images were created and reviewed. CONTRAST MATERIAL: Intravenous: Omnipaque 350 Contrast volume:structured data in ml Contrast route:I V - COMPARISON: CR XR HUMERUS LT from 02/27/2024 FINDINGS: Bones: There is no evidence of fracture or dislocation. Bony alignment is satisfactory. No cellulitic or osteomyelitic changes are identified. Mild degenerative changes at the acromioclavicular joint. Degenerative cystic changes in the humeral head. The elbow is grossly unremarkable. Soft Tissues: Normal. No hematoma. IMPRESSION: No acute abnormality. RADIATION DOSE DELIVERED: 290.29mGy.cm Total DLP DATA REPOSITORY: All CT scans at this facility are submitted to the National Radiology Data Registry (NRDR) Dose Index Registry (DIR) with the [employer] (ACR). RADIATION OPTIMIZATION: All CT scans at this facility use at least one of these dose optimization te chniques: automated exposure control; mA and/or kV adjustment per patient size (includes targeted exa ms where dose is matched to clinical indication); or iterative reconstruction.
[2024-02-27] MEDS: Amoxicillin 875/Clav. 125 TAB PO (20:54)
[2024-02-27 21:47] VITALS: BP 160/75; PULSE 83; RESP 16; TEMP 36.8; O2SAT 94
--- NOTE | 2024-02-27 22:15 | DI.VRAD_ITS ---
PROCEDURE INFORMATION: Exam: CT Left Upper Extremity Without Contrast, Upper Arm Exam date and time: 02/27/2024 7:41 PM Age: 73 years old Clinical indication: Injury or trauma; Fall; Blunt trauma (contusions or hematomas); Arm, upper; Left; Injury date: 02/27/24; Injury details: Mid shaft humerus pain, negative XR TECHNIQUE: Imaging protocol: Computed tomography of the left upper extremity without contrast. Exam focused on the upper arm. COMPARISON: CR XR HUMERUS LT 02/27/2024 6:08 PM FINDINGS: Bones/joints: Normal. No acute fracture or dislocation. Soft tissues: Normal. No significant hematoma. IMPRESSION: No evidence for fracture. Dictated and Authenticated by: Keren Gamble MD. Ordering:DURGA Hill MD
--- NOTE | 2024-02-27 22:21 | NUR.NOTE ---
Addendum entered by Anjali Zendejas 03/04/24 11:01: Patient called asking about when she should be concerned about her appt with [facility]. Referral given to Care Management, patient name and phone number given to them to call her back with details. Original Note: Referral to Care Management to refer patient to [facility] either ENT or OMFS jordi. Dx of L inferior orbital fx.Nursing Note:
== END 2024-02-27 22:26 | disposition home or self-care (01) ==
PROVIDERS: Emergency Provider Emergency Medicine; PCP Family Medicine
DX: S01.112A Laceration without foreign body of left eyelid and periocular area, initial encounter (principal); S02.32XA Fracture of orbital floor, left side, initial encounter for closed fracture; I10 Essential (primary) hypertension; Z87.891 Personal history of nicotine dependence; W01.10XA Fall on same level from slipping, tripping and stumbling with subsequent striking against unspecified object, initial encounter
CPT/HCPCS: 12013; 96365; 96375; 99285; 70450; 70486; 73060; 73200; 99284; J0131; J3010

== ENCOUNTER 2025-03-05 23:16 | Outpatient (REF) | payer MEDICARE, SELFPAY ==
[2025-03-05 23:09] LABS: ALT 31 U/L (14-59); AST 18 U/L (15-37); Albumin 3.7 g/dL (3.4-5.0); Alkaline Phosphatase 81 U/L (46-116); Anion Gap 6.9 mmol/L (3-11); BUN 16 mg/dL (7-18); Bilirubin, Total 0.4 mg/dL (0.2-1.0); CO2 32.1 mmol/L (21.0-32.0); CREATININE 0.8 mg/dL (0.55-1.02); Calcium 9.2 mg/dL (8.5-10.1); Calculated LDL 94 mg/dL (<100); Chloride 100 mmol/L (98-107); Cholesterol 176 mg/dL (<200); Estimated GFR 77.27 (mL/min/1.73m2); Glucose 94 mg/dL (74-106); HDL Cholesterol 55 mg/dL (>or=50); Potassium 3.6 mmol/L (3.5-5.1); Sodium 139 mmol/L (136-145); Total Protein 7.4 g/dL (6.4-8.2); Triglyceride 139 mg/dL (<150)
== END 2025-03-05 23:17 | disposition home or self-care (01) ==
LOC: NCHCN 23:16
PROVIDERS: PCP Family Medicine; Visit Provider Family Medicine
DX: Z00.00 Encounter for general adult medical examination without abnormal findings (principal)
CPT/HCPCS: 80053; 80061

== ENCOUNTER 2025-03-18 01:13 | Outpatient (CLI) | payer MEDICARE, SELFPAY ==
--- NOTE | 2025-03-18 12:53 | DI.MAMMO_ITS ---
Exam(s) MAMMO SCREENING EXAM: MAMMO SCREENING CLINICAL HISTORY: Screening Z12.31. TECHNIQUE: Bilateral full field digital CC and MLO mammographic images were obtained with 3D tomosynthesis and utilizing computer aided detection (CAD). COMPARISON: Prior mammograms dating back to 2017 were reviewed. FINDINGS: There has been no significant change in the appearance and distribution of the fibroglandular tissue. Benign-appearing nodular densities again noted in the breasts. There are no new spiculated masses nor new malignant appearing microcalcification groups. There is no significant architectural distortion nor skin thickening-retraction. IMPRESSION: Stable benign-appearing findings no radiographic evidence of malignancy. BI-RADS Category 2 - Benign Findings Breast Density - Category B - There are scattered areas of fibroglandular density. Breast density Category C or D implies that the patient has dense breast tissue. Dense breast tissue can make it harder to find cancer on a mammogram. Dense breast tissue is also associated with an increased risk of breast cancer. This information about the result of the mammogram report was provided to the patient to raise their awareness. Use this report when you speak with the patient about their risks for breast cancer, which includes their family history. At that time, you may recommend additional screening tests (Ultrasound or MRI) as these tests may add significant information. A negative radiographic report should not delay biopsy if a dominant or clinically suspicious mass is present. Up to ten percent of cancers are not identified on mammography. A negative report may reinforce clinical impression. Adenosis and dense breasts may obscure an underlying neoplasm. False positive reports average 6 to 10%. Patient will receive a letter notifying them of these results.
== END 2025-03-18 01:33 ==
PROVIDERS: PCP Family Medicine; Visit Provider Family Medicine
DX: Z12.31 Encounter for screening mammogram for malignant neoplasm of breast (principal); R92.323 Mammographic fibroglandular density, bilateral breasts
CPT/HCPCS: 77063; 77067